=== PATIENT | female | born 1965 | race Caucasian/White ===

== ENCOUNTER 2023-08-05 13:14 | Emergency (ER) | payer OTHER, SELFPAY ==
[2023-08-05] VITALS (7 sets, daily range): BP systolic 83–101; BP diastolic 65–74
--- NOTE | 2023-08-05 13:27 | ED.GENMED ---
History of Present Illness
General
Chief Complaint: Chest Pain
Source: patient
Exam Limitations: none
Time Seen by Provider: 08/05/23 13:27
Nursing documentation reviewed up to this point in time: agreed with
Travel History
Have you had any contact with someone who has COVID-19?: No
Do you have any symptoms of coronavirus? Fever > 100 degrees, chills, cough, shortness of breath, sore throat, loss of taste or smell, muscle aches, or headache?: No
History of Present Illness
History of Present Illness:
58-year-old female with no clinically significant history presents stating for the past 2 days she has had mid chest pressure, sometimes feeling it between her scapula also. Otherwise nonradiating.
1 PM yesterday he felt 'like someone was stepping on my chest.' She states she was very stressed yesterday and had a meeting that was stressful. 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
4 PM yesterday had body aches, fatigue, her chest was 'uncomfortable' and 'I felt like I was coming down with something.' She took a home COVID test which was negative
Today her body aches are gone, her fatigue is improving but her chest pain remains intermittent, more constant in the past hour associated with some lightheadedness and mild nausea. Today the chest pain is more of a sharp sensation rather than a
pressure and sometimes she feels it between her shoulder blades.
Past History
Past History
ED Past Surgical History: Cholecystectomy, Orthopedic and Urological
Social History
Tobacco: Non-smoker
Alcohol: Occasional
Personal: Single
Living: with family
Employment: Employed
Review of Systems
Review of Systems
Allergies reviewed?: Yes
All Other Systems: ROS reviewed and negative except as documented in HPI and ROS
Constitutional: Reports fatigue; Denies fever
EENT: Denies sore throat
Respiratory: Denies cough or trouble breathing
Cardiac: Reports chest pain; Denies diaphoresis, palpitations or syncope
ABD/GI: Reports nausea (mild intermittent); Denies abdominal pain, vomiting or diarrhea
: Denies dysuria, frequency or difficulty voiding
Musculoskeletal: Reports no symptoms
Skin: Reports no symptoms
Neurological: Reports no symptoms
Phy Exam
Physical Exam
Physical Exam:
GENERAL: No acute distress. A&Ox3.
CONSTITUTIONAL: Afebrile.
EYES: clear, conjunctivae normal
ENMT: moist mucus membranes, Pharynx nl
RESPIRATORY: Regular respirations, nonlabored, lungs clear.
CARDIOVASCULAR: Regular rate and rhythm, no murmurs, no rubs.
GI: Soft, nontender, normal BS
MUSCULOSKELETAL: Moves with ease. Well perfused.
SKIN: Warm, dry, pink
PSYCH: Normal mood and affect. Well kept, interactive and appropriate
NEUROLOGIC: Awake, alert and oriented. No focal neurological deficits
Scores
Heart Score for Chest Pain Patients
STEMI patient?: Not applicable
Course
Orders/Labs/Results
Orders:
Orders
08/05/23 13:15
ECG [Electrocardiogram (*1)] Urgent
Reason for Study: Chest Pain
EKG- Treatment ONCE
08/05/23 13:39
Mag Hydrox/Al Hydrox/Simeth [Maalox] 30 ml Phenobarb/Hyoscy/Atropine/Scop [] 10 ml Viscous Lidocaine 2% [Xylocaine Viscous Cup] 10 ml PO NOW
CR Chest - 2 Views Urgent
Comment:
Reason For Exam: chest pain
08/05/23 14:03
Mag Hydrox/Al Hydrox/Simeth [Maalox] 30 ml .ROUTE .STK-MED ONE
Phenobarb/Hyoscy/Atropine/Scop [] 10 ml .ROUTE .STK-MED ONE
Viscous Lidocaine 2% [Xylocaine Viscous Cup] 15 ml .ROUTE .STK-MED ONE
08/05/23 14:17
COVID-19 Antigen Urgent
Source: Nasal Swab
Complete Blood Count/With Diff Urgent
Comprehensive Metabolic Panel Urgent
Troponin I Urgent
Abnormal Lab Results
08/05/23
14:17
WBC 3.4 L 10^3/uL
(4.8-10.8)
RBC 4.08 L 10^6/uL
(4.20-5.40)
MCH 33.6 H pg
(27.0-31.0)
Absolute Lymphs (auto) 0.8 L 10^3/uL
(1.2-3.4)
Glucose 110 H mg/dl
(70-99)
AST 39 H U/L
(14-36)
08/05/23 14:17
08/05/23 14:17
Vital Signs
Initial and Last Documented VS:
Initial Vital Signs
Temp Pulse Resp BP Pulse Ox
98.3 F 81 16 101/74 96
08/05/23 13:23 08/05/23 13:23 08/05/23 13:23 08/05/23 13:23 08/05/23 13:23
Last Documented Vital Signs
Temp Pulse Resp BP Pulse Ox
98.3 F 82 18 100/68 96
08/05/23 13:23 08/05/23 15:00 08/05/23 15:00 08/05/23 15:00 08/05/23 15:00
MDM/Problems Addressed
Differential Diagnosis Includes:
GERD, ACS
MDM/Problems Addressed:
58-year-old female with hx cholecystectomy no other clinically significant history presents stating for the past 2 days she has had mid chest pressure, sometimes feeling it between her scapula also. Otherwise nonradiating.
1 PM yesterday he felt 'like someone was stepping on my chest.' She states she was very stressed yesterday and had a meeting that was stressful. 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
4 PM yesterday had body aches, fatigue, her chest was 'uncomfortable' and 'I felt like I was coming down with something.' She took a home COVID test which was negative
Today her body aches are gone, her fatigue is improving but her chest pain remains intermittent, more constant in the past hour associated with some lightheadedness and mild nausea. Today the chest pain is more of a sharp sensation rather than a
pressure and sometimes she feels it between her shoulder blades.
2:53 PM
CBC unremarkable
CMP normal
Troponin WNL
CXR: NAD
No indication of cardiac etiology of her pain. After GI cocktail pain has subsided.
Plan: Pepcid or Omeprazole OTC, GI f/u as needed
Stress reduction techniques
*EKG
EKG Intrepretation Date: 08/05/23
Interpretation: normal
Rate: normal
Rhythm: sinus
[place]: normal axis
Interval: normal interval
QRS Pattern: normal QRS
Ischemia: no ischemia
*Critical Care Note
Total Time (30-74mins, 75-104mins- exclusive of procedures): Not Applicable
ED Attending Note
-
Portions of this chart may have been created with voice recognition software.� Occasional wrong word or��sound alike� substitutions may have occurred due to the inherent limitations of voice recognition software.
Discharge Plan
Departure
Patient Disposition: Home (Routine Discharge)
Date of Disposition: 08/05/23
Time of Disposition: 15:07
Patient with high blood pressure during this ER visit?: No
Condition: Good
Discharge Problem:
Atypical chest pain
Instructions: Chest Pain That Is Not Caused by the Heart (DC), Acid Reflux and GERD in Adults (DC), Relaxation Techniques
Prescriptions:
No Action
progesterone micronized 200 MG capsule
200 mg PO DAILY
Bioidentical Hormones
1 tab intradermal Q4M
Patient Comments:
estrogen + testerone, custom compounded depending on labs
Dim Sgs
1 cap PO DAILY
Patient Comments:
multiple supplement
hydrocodone-acetaminophen 1 TABLET tablet
1 - 2 tab PO Q4HPRN PRN (Reason: moderate to severe pain) Qty: 20 0RF
Referrals:
Linda Matamoros CRNP [Family Provider] - Follow up in 10 days
Activity Restrictions/Additional Instructions:
As we discussed, either Pepcid or omeprazole [id number] to decrease the acid in your stomach. Do this for 2 weeks and see if that helps.
See your primary care provider in 10 to 14 days for recheck to see if that helps.
If you continue to have symptoms, I have provided you with a GI doctor to follow-up with as needed
Return immediately for chest pain associated with breaking out in a sweat, vomiting, feeling weak, radiating into the neck or the arm or feeling sicker in any way.
Interventions
Interventions:
*Risk Screen - Suicide Last Done: 08/05/23 14:20
*General Assessment Last Done: 08/05/23 14:20
*Neglect/Abuse Screening Last Done: 08/05/23 14:20
ED- Fall Risk Assessment Last Done: 08/05/23 15:17
*ED COVID-19 Vaccine History Last Done: 08/05/23 13:23
*Nursing Disposition Last Done: 08/05/23 15:17
ED- Cardiac Assessment Last Done: 08/05/23 14:15
Discharge Date and Time
Discharge Date/Time: 08/05/23 15:19
Print Language: [id number]
[2023-08-05] MEDS: MAALOX 40 PO (14:08)
[2023-08-05 14:27] LABS: % Basophils 0.3 % (0-2); % Eosinophils 0.3 % (0-6); % Immature Granulocytes 0.3 % (0-0.5); % Lymphocytes 23.9 % (20.5-51.1); % Monocytes 7.4 % (1.7-9.3); % Neutrophils 67.8 % (42.2-75.2); Absolute Lymphocytes 0.8 10^3/uL (1.2-3.4); Absolute Monocytes 0.3 10^3/uL (0.1-0.6); Absolute Neutrophils 2.3 10^3/uL (1.4-6.5); Hematocrit 37.7 % (37.0-47.0); Hemoglobin 13.7 g/dL (12.0-16.0); Mean Corp Hgb Conc. 36.3 g/dL (33.0-37.0); Mean Corpuscular Hgb 33.6 pg (27.0-31.0); Mean Corpuscular Volume 92.4 fL (81.0-99.0); Mean Platelet Volume 9.6 fL (7.4-10.4); Nucleated Red Blood Cells % 0 %; Platelet Count 168 10^3/uL (130-400); Red Blood Cell Count 4.08 10^6/uL (4.20-5.40); Red Cell Dist. Width 11.5 % (11.5-14.5); White Blood Cell Count 3.4 10^3/uL (4.8-10.8)
[2023-08-05 14:40] LABS: COVID-19 Antigen Negative (Negative)
[2023-08-05 14:51] LABS: Troponin I < 0.012 ng/ml
[2023-08-05 14:53] LABS: ALT (SGPT) 26 U/L (0-35); AST (SGOT) 39 U/L (14-36); Albumin 4.1 g/dl (3.5-5.0); Alkaline Phosphatase 47 U/L (38-126); Blood Urea Nitrogen 13 mg/dl (7-17); Calcium 9.3 mg/dl (8.4-10.2); Carbon Dioxide 25 mmol/L (22-30); Chloride 106 mmol/L (98-107); Glucose 110 mg/dl (70-99); Potassium 4.5 mmol/L (3.5-5.1); Sodium 136 mmol/L (135-145); Total Bilirubin 0.7 mg/dl (0.2-1.3); Total Protein 6.4 g/dl (6.3-8.2); eGFR > 60.00
== END 2023-08-05 15:19 | disposition home or self-care (01) ==
LOC: EMR 13:14
PROVIDERS: Registered Nurse; EMERGENCY PHYSICIAN Emergency Medicine; FAMILY PHYSICIAN Nurse Practitioner Family
DX: R07.89 Other chest pain (principal)
CPT/HCPCS: 99285; 71046; 80053; 84484; 85025; 87811; 93005